=== PATIENT | female | born 1995 | race Caucasian/White ===

== ENCOUNTER 2024-05-22 10:41 | Inpatient (IN) | payer MEDICAID, SELFPAY ==
[2024-05-22] VITALS (109 sets, daily range): BP systolic 80–157; BP diastolic 42–92; PULSE 55–119; RESP 14–24; TEMP 36.3–37.3; O2SAT 83–100; BMI 38.2
--- NOTE | 2024-05-22 11:00 | ESHP_ITS ---
Documentation for date of: 05/22/24 OB Labor/Induct. HPI History of Present Illness Chief complaint: 28 y/o 37w 0d presents to L&D in labor at 4 cm : 2 Para: 1 Term pregnancies: 1 pregnancies: 0 Living children: 1 History of Abortions: Spontaneous and Elective: 0 History of Vaginal deliveries: 1 History of sections: No History of : No Date of last menstrual period: 09/05/24 DMITRY: 06/12/24 Gestational Age (weeks): 37 Gestational Age (days): 0 Gestational age based on last menstrual period: -15 History of present illness: 28 y/o 37w 0d presents to L&D in labor at 4 cm/90/-1 vertex, GBS is neg. Pt's has been complicated by BMI of 39, pt has a hx of PTD at 32 weeks, this pt was on vaginal progesterone, which was DC at 35 weeks. Pt EFW 3600g History of Present Dating criteria: based on LMP only Adequate Care: Yes Ultrasounds: normal 1st trimester US and normal mid trimester US Obstetrical complications: other (obesity) Labs Maternal Blood Type: O Pos Labs: Positive: Rubella Titre, Negative: RPR, Hepatitis B, HIV, Chlamydia, Gonorrhea and Group Beta Strep and Unknown: Covid-19 Review of Systems Review of Systems Systems Reviewed: All systems reviewed, normal except as documented Past Medical History Surgical History SURGICAL: Negative Section Meds Home Medications and Allergies Home Medications ?Medication ?Instructions ?Recorded ?Confirmed ?Type prenat.vits,genesis,mso-uepm-csums 1 tab PO QDAY 07/06/21 05/22/24 History Allergies Allergy/AdvReac Type Severity Reaction Status Date / Time No Known Allergies Allergy Verified 05/22/24 11:02 OB Exam Physical Exam Vital signs: Temp Pulse Resp BP Pulse Ox 97.4 F 69 20 111/59 L 100 05/22/24 10:24 05/22/24 13:29 05/22/24 10:24 05/22/24 13:29 05/22/24 13:30 Constitutional Constitutional: no acute distress Routine HEENT Exam Head: Present normocephalic and atraumatic Eye: Present EOMI, PERRL and normal accommodation ENT: Present mucous membranes moist Routine Neck Exam Neck: Present supple, full ROM and trachea midline Routine Respiratory Exam Respiratory: Absent respiratory distress Routine Cardiovascular Exam Cardiovascular: Present RRR Routine Abdominal Exam Abdominal: Present soft Comments: Gravid Uterus EFW 3600g Routine Exam Patient deferred: external exam External: Present normal urethra appearance; Absent lesions Detailed Labor and Delivery Exam Dilation (cm): 4 Effacement (%): 90 Cervix position: posterior station: -1 Consistency: soft Presentation: Vertex Membranes: intact Baseline heart rate: 130 monitor accelerations: 15x15 monitor decelerations: None watermelon harvesting supervisor variability: Moderate (11-25) Contraction frequency (min): 2-3 Contraction intensity: Moderate Routine Extremities Exam Extremities: Present full ROM Routine Back/Spine/Pelvis Exam Back/Spine: Present full ROM Routine Skin Exam Skin: Present intact, dry and warm Routine Neurological Exam Neurological: Present alert, oriented X3 and CN II-XII intact Routine Psychiatric Exam Psychiatric: Present normal affect and normal thought process OB Results Labs 05/22/24 11:11 Labs: Short CBC 05/22/24 Range/Units 11:11 WBC 11.3 H (3.6-11.0) Thou/mm3 Hgb 13.2 (12.0-16.0) g/dL Hct 36.2 (36.0-46.0) % Plt Count 249 (140-440) Thou/mm3 OB Assessment & Plan Assessment and Plan (1) Normal labor: Status: Acute (2) Obesity affecting in third trimester: Status: Acute (3) 37 weeks gestation of : Status: Acute Additional Plan Induction method: none Plan: augmentation and consult MD grant Additional Plan Comment: Routine admit orders Consult anesthesia for an epidural Anticipate (2) Obesity affecting in third trimester Qualifiers: Obesity type affecting : other obesity due to excess calories Q ualified Code(s): O99.213 - Obesity complicating , third trimester; E66.09 - Other obesity due to excess calories
[2024-05-22] MEDS: RINGERS LACTATED 1000 ML 1,000 ML 125 ML IV ×2 (11:11→11:52)
[2024-05-22 11:25] LABS: Basophils % (Auto) 0 % (0-2.5); Eosinophils # (Auto) 0.1 Thou/mm3 (0.0-0.5); Eosinophils % (Auto) 0 % (0-10); Hematocrit 36.2 % (36.0-46.0); Hemoglobin 13.2 g/dL (12.0-16.0); Immature Granulocytes % (Auto) 0 % (0-0); Immature Granulocytes Auto 0.04 Thou/mm3 (0.00-0.00); Lymphocytes # (Auto) 2.6 Thou/mm3 (1.0-4.8); Lymphocytes % (Auto) 23 % (10-50); Mean Corpuscular HGB Conc 36.5 g/dl (31.0-37.0); Mean Corpuscular Hemoglobin 31.2 pg (25.0-35.0); Mean Corpuscular Volume 86 fL (80-100); Monocytes # (Auto) 0.6 Thou/mm3 (0.0-0.8); Monocytes % (Auto) 5 % (0-12); Neutrophils % (Auto) 70 % (37-80); Nucleated Red Blood Cell % 0 /100 WBC (0); Platelet Count 249 Thou/mm3 (140-440); RDW Standard Deviation 40.5 fL (36.4-46.3); Red Blood Count 4.23 Miln/mm3 (4.00-5.20); White Blood Count 11.3 Thou/mm3 (3.6-11.0)
[2024-05-22 12:06] LABS: Syphilis Nonreactive (Nonreactive)
--- NOTE | 2024-05-22 13:26 | PD.LDPN ---
Documentation for date of: 05/22/24 OB Labor Progress Note Pain Control Pain control: epidural Pelvic Exam Dilation (cm): 5 Effacement (%): 90 station: 0 Amniotic membrane status: Ruptured (AROM, bloody clear) Contractions Monitor mode: External Contraction frequency: 3-4 Contraction phase: Contraction Contraction intensity: Moderate Status status: Category ll Assessment and Plan Assessment: other (Latent labor) Plan OB labor note: continuous present management Comments: AROM performed- bloody clear fluids Pt received an epidural and is comfortable, right after breaking membranes, pt started to feel weird and was dizzy, HOB was lowered, BP dropped to 80/45, fluid bolus started, pt was turned to her left side and O2 placed, FHT also dropped. After intrauterine resuscitation measures, mother and baby are now stable, BP has come up and heart tones. IUPC placed to monitor contractions, amniinfusion started Anticipate
[2024-05-22] MEDS: CITRIC ACID/SODIUM CITR 15 ML UDC (BICITRA) 30 ML PO (15:50)
[2024-05-22] MEDS: FAMOTIDINE INJ 10 MG/ML VIAL 2 ML 20 MG IV (15:51)
[2024-05-22] MEDS: ceFAZolin/D5W 2 GM IV 2 GM/100 ML BAG IV (15:51)
[2024-05-22] MEDS: AZITHROMYCIN 250 MG TABLET 1000 MG PO (16:02)
--- NOTE | 2024-05-22 16:15 | PD.LDPN ---
Documentation for date of: 05/22/24 OB Labor Progress Note Pelvic Exam Dilation (cm): 6 Effacement (%): 90 station: -1 Amniotic membrane status: Ruptured (AROM, bloody clear) Contractions Monitor mode: External Contraction frequency: 2-3 Contraction phase: Contraction Contraction intensity: Moderate Status status: Category ll Comments: late decels recurrent , inspite of position change , bolus, BP was alsoaddressed , even jorge BP was normal , the decels did reccur. Assessment and Plan Comments: Patoient was given both options of expectant vs Csection Risk of Csection expalined chose to go for Csection
--- NOTE | 2024-05-22 21:06 | PD.LDDELS ---
Data ([facility]) Data Hx Section: No : 2 Para: 1 Term: 0 : 1 : 0 Delivery Data ([facility]) Labor Data ROM Date: 05/22/24 ROM Time: 13:14 Rupture Type: AROM Amniotic Fluid: Clear Delivery Data Labor Onset Stage 1 Date: 05/22/24 Labor Onset Stage 1 Time: 12:09 Labor Onset Stage 2 Date: 05/22/24 Labor Onset Stage 2 Time: 16:29 Delivery Date: 05/22/24 Delivery Time: 16:29 Gestational age (weeks): 37 Placenta Delivery Date: 05/22/24 Placenta Delivery Time: 16:30 Delivered by: Melodie Darling Delivery nurse: Beatrice New Other staff at delivery: Nurse Other staff at delivery: RT Other staff at delivery: Vanessa Lombardo Other staff at delivery: davey Delivery Method Delivery: Delivery Type: Primary Anesthesia Type Primary Anesthesia: Epidural Placenta Placenta Delivery: Manual Cord Sample: Cord Blood Obtained, Cord Gases Arterial and Cord Gases Venous EBL Estimated blood loss (ml): 300 Umbilical Cord Nuchal Cord: x1 Body Cord: x1 Hortense Data ([facility]) Hortense Data Infant Gender: Male Weight Grams: 3280 1 Minute Total: 7 5 Minute Total: 9
--- NOTE | 2024-05-22 21:10 | PD.GYNPROC ---
Operative Note - CORRESPONDENCE RENEW CLERK Procedure Date of procedure: 05/22/24 Procedure Performed: Primary Low trransverse Csectiomn Indication: cat 2 FHT , recurrent late decel , non resoluting after resuscitative measure Pre-Op diagnosis: samesame Post-Op diagnosis: same Anesthesia type: Spinal Procedure description: Informed consent was obtained and the patient was taken to the operating room.? Identity was confirmed by double identifiers and she was placed on the operating table.The abdomen and perineum were prepped in the usual sterile fashion and a Kumar catheter was placed to continuous drainage.? Sterile drapes were applied.??A Pfannenstiel skin incision was made with a scalpel and carried to the subcutaneous fat up to the rectus fascia.? The rectus fascia was incised on either side of the midline and the incisions were extended bilaterally.? The fascia was gently dissected off the ventral surface of the rectus muscle both superiorly and inferiorly. Carefully a peritioneal window craeted hysterotomy incision made and extended bluntly with finger. Rupture of membranes revealed clear fluid. The baby was found in cephalic position delivered via vertex. The umbilical cord , was doubly clamped, divided and the infant was handed over to the waiting team.? placenta delivered by controlled cord traction . The interior of the uterus was now thorougly cleaned of all blood and debris and membranes.? 2 cavities and the uterus verified the? hysterotomy was closed using 0 vicryl suture in double layers. Once the repair was completed the hysterotomy was inspected, was noted to be adequately hemostatic . Muscle oozing stopped by bovie. The rectus fascia was repaired using Vicry 0 in a running fashion.? The subcutaneous layer was now, approximated with 3-0 vicryl in double layers.? All bleeding points were cauterized using the Bovie.?The skin was closed using 4-0 Monocryl in a subcuticular fashion.? The skin was cleaned and a sterile dressing was applied. The patient was now undraped, the abdomen and back were thoroughly cleaned and she was now transferred to the recovery room in a stable Estimated blood loss (ml): 300 Surgical staff Operation Date: 05/22/24 16:15 Case Staff IN TUBE CONVERSION TECHNICIAN: Anuj Louie RNfuel efficient automobile designer: Janel Gilliam Diagnosis Problem List Completed Was Problem List Reviewed/Reconciled?: Yes
[2024-05-22 22:28] LABS: Basophils % (Auto) 0 % (0-2.5); Eosinophils % (Auto) 0 % (0-10); Hematocrit 30.7 % (36.0-46.0); Hemoglobin 10.9 g/dL (12.0-16.0); Immature Granulocytes % (Auto) 0 % (0-0); Immature Granulocytes Auto 0.05 Thou/mm3 (0.00-0.00); Lymphocytes # (Auto) 1.8 Thou/mm3 (1.0-4.8); Lymphocytes % (Auto) 12 % (10-50); Mean Corpuscular HGB Conc 35.5 g/dl (31.0-37.0); Mean Corpuscular Hemoglobin 31.3 pg (25.0-35.0); Mean Corpuscular Volume 88 fL (80-100); Monocytes % (Auto) 7 % (0-12); Neutrophils # (Auto) 12.3 Thou/mm3 (1.8-7.7); Neutrophils % (Auto) 81 % (37-80); Nucleated Red Blood Cell % 0 /100 WBC (0); Platelet Count 201 Thou/mm3 (140-440); RDW Standard Deviation 42.3 fL (36.4-46.3); Red Blood Count 3.48 Miln/mm3 (4.00-5.20); White Blood Count 15.1 Thou/mm3 (3.6-11.0)
[2024-05-22] MEDS: OXYTOCIN in NS 20 units 20 UNIT/1,000 ML BAG 125 UNIT IV (23:04)
[2024-05-22] MEDS: KETOROLAC INJ 30 MG/ML VIAL IVP (23:06)
[2024-05-23 04:26] VITALS: BP 107/71; PULSE 75; RESP 18; TEMP 36.6; O2SAT 97
[2024-05-23] MEDS: HYDROcodone/APAP 5/325 TABLET 2 TAB PO ×2 (04:31→19:55)
[2024-05-23 08:00] VITALS: BP 109/51; PULSE 81; RESP 16; TEMP 36.7; O2SAT 98
--- NOTE | 2024-05-23 08:15 | PC.LAC ---
Mom states she hasn't seen her milk though hand expression. Explained skin to skin and help with stimulation could encourage more hormones for more milk. At this time baby in blankets. Unwrapped baby and placed him skin to skin. Mom ok with this.
--- NOTE | 2024-05-23 09:17 | ESPR_ITS ---
Subjective Subjective Interval history: Bobbi is doing well on POD 1. Pain could be better managed- she is receiving both norco and ibuprofen prn rather than having ibuprofen scheduled. She notes pain has been creeping up this morning after receiving a norco at 0400 and walking at that time. She is currently awaiting due to void after arenas was removed at 0400. She notes no lightheadedness when she walked. Tolerating PO without nausea/vomiting. No fevers/chills. No CP/SOB. Exam Vital Signs Temp Pulse Resp BP Pulse Ox O2 Del Method 97.9 F 75 18 107/71 97 Room Air 05/23/24 04:26 05/23/24 04:26 05/23/24 04:26 05/23/24 04:26 05/23/24 04:26 05/23/24 04:26 Narrative Exam General: well developed, well nourished, no acute distress, conversant Cardiac: normal heart rate Lungs: breathing without distress Abdomen: soft, post-gravid, non-tender, no rebound or guarding, pfannenstiel incision covered by dry/clean/intact pressure dressing. No saturation. Extremities: no pain with palpation of calves, trace edema of BLE Objective Labs 05/22/24 22:13 Labs: Laboratory Results - last 24 hr 05/22/24 05/22/24 11:11 22:13 WBC 11.3 H 15.1 H RBC 4.23 3.48 L Hgb 13.2 10.9 L D Hct 36.2 30.7 L MCV 86 88 MCH 31.2 31.3 MCHC 36.5 35.5 RDW Std Deviation 40.5 42.3 Plt Count 249 201 D Neut % (Auto) 70 81 H Lymph % (Auto) 23 12 Villalba % (Auto) 5 7 Eos % (Auto) 0 0 Baso % (Auto) 0 0 Neut # (Auto) 8.0 H 12.3 H Lymph # (Auto) 2.6 1.8 Villalba # (Auto) 0.6 1.0 H Eos # (Auto) 0.1 0.0 Baso # (Auto) 0.0 0.0 Immature Gran # (Auto) 0.04 H 0.05 H Absolute Nucleated RBC 0.00 0.00 Immature Gran % 0 0 Nucleated RBC % 0 0 Syphilis Serology Nonreactive Blood Type O Positive Antibody Screen NEGATIVE Blood Bank Wristband ID Yes Assessment & Plan Problem List (1) Delivery by section: Status: Acute Assessment and plan: Patient is a 28yo G2 [id number] s/p uncomplicated PLTCS after experiencing a persistent Cat II FHRT in labor, doing well on POD 1. Vitals wnl, benign exam. Hemodynamically stable with no evidence of infection. Appropriate change in H/H. Plan: -Continue routine /post-op care -Switch prn ibuprofen to scheduled, continue norco prn and add miralax for bowel regimen -Awaiting due to void -Regular diet -Encourage ambulation and use of IS -Anticipate discharge home tomorrow if meeting all milestones (2) Non-reassuring heart rate or rhythm affecting management of fetus: Status: Acute (3) Obesity affecting in third trimester: Status: Acute (4) 37 weeks gestation of : Status: Acute Time Spent With Patient Time: Total time spent is greater than 50% in coordination of care (as documented) at patient's floor/unit and/or counseling patient: Time with patient: 25 - 35 minutes
[2024-05-23] MEDS: IBUPROFEN TAB 400 MG TABLET 800 MG PO ×2 (10:19→18:08)
[2024-05-23] MEDS: POLYETHYLENE GLYCOL 17 GM PACKET PO (11:34)
[2024-05-23 11:52] VITALS: BP 111/61; PULSE 84; RESP 18; TEMP 36.8; O2SAT 99
[2024-05-23 16:00] VITALS: BP 113/76; PULSE 89; RESP 17; TEMP 36.8; O2SAT 98
[2024-05-23 19:49] VITALS: BP 110/74; PULSE 85; RESP 19; TEMP 36.9; O2SAT 96
--- NOTE | 2024-05-23 22:49 | PC.NURSE ---
2130 patient refused bath and stated that she wants to do the bath at home.
--- NOTE | 2024-05-23 22:52 | PC.NURSE ---
1948 Patient refused fundal assessment at this time pt educated on importance of fundal check.
[2024-05-24] MEDS: IBUPROFEN TAB 400 MG TABLET 800 MG PO ×2 (01:03→09:50)
[2024-05-24 03:43] VITALS: BP 105/62; PULSE 90; RESP 18; TEMP 36.6; O2SAT 97
--- NOTE | 2024-05-24 05:53 | PC.NURSE ---
0343 Patient refused fundal assessment at this time. Patient educated on the importance of fundal check. Patient verbalized understanding.
[2024-05-24 08:10] VITALS: BP 106/70; PULSE 79; RESP 17; TEMP 36.7; O2SAT 97
--- NOTE | 2024-05-24 08:47 | ESDS_ITS ---
DS: Providers Provider Date of admission: 05/22/24 10:41 Primary care physician: Physician No Primary/Family Admitting Provider: Bhumi Gauthier CNM Attending Provider on Admission: Melodie Darling MD Consults: 05/22/24 16:15 Referral Routine Comment: Attending Provider on DC: Josey Lerma MD Discharging Provider: Josey Lerma MD DS: Diagnosis Discharge Diagnosis (1) Delivery by section: Status: Acute Assessment & Plan: Patient is a 28yo G2 [id number] s/p uncomplicated PLTCS after experiencing a persistent Cat II FHRT in labor, doing well on POD 2. She has had an uneventful post-operative/ course. Vitals wnl, benign exam. Hemodynamically stable with no evidence of infection. Appropriate change in H/H (10.9 from 13.2). Plan: -Discharge home -Regular diet -Medications prescribed to pharmacy: motrin 800mg PO Q8hr prn pain, norco 5/325mg PO Q6hr prn pain, miralax 17g PO QD to prevent constipation, ferrous sulfate 325mg PO QD for anemia. Discussed with patient how to take medications. -Restrictions: vaginal rest and no heavy lifting greater than 10 pounds for 6 weeks, no driving while taking narcotic, do not submerge incision (keep clean and dry) -Follow up: 1 week appointment with OBGYN for incision check -Return precautions given: fever greater than 100.4F, chills, myalgias, increasing abdominal pain, drainage/redness/swelling of incision, foul smelling vaginal discharge, heavy vaginal bleeding > 1 pad in an hour for 2 hours in a row, redness/pain of breast in the setting of fevers/chills/myalgias, symptoms of depression (2) Non-reassuring heart rate or rhythm affecting management of fetus: Status: Acute (3) Obesity affecting in third trimester: Status: Acute Problem List Completed Was Problem List Reviewed/Reconciled?: Yes Summary/Hosp Course Brief History: S/p uncomplicated PLTCS after experiencing a persistent Cat II FHRT in labor. She has had an uneventful post-operative course. Vitals wnl, benign exam. Hemodynamically stable with no evidence of infection. Appropriate change in H/H. Pain well controlled. She feels ready to go home. Peripartum Data Procedures: Procedures Operation Date: 05/22/24 16:15 Actual Procedure Side Surgeon p in OB Not Applicable Melodie Darling MD Status at Discharge Functional status at discharge: independent ambulation Overall status at discharge: patient is back to baseline Time Spent with Patient Time attestation: Total time spent providing and/or coordinating discharge services: Exam Vital Signs Temp Pulse Resp BP Pulse Ox O2 Del Method 98.0 F 79 17 106/70 97 Room Air 05/24/24 08:10 05/24/24 08:10 05/24/24 08:10 05/24/24 08:10 05/24/24 08:10 05/24/24 08:10 Narrative Exam General: well developed, well nourished, no acute distress, conversant Cardiac: normal heart rate Lungs: breathing without distress Abdomen: soft, post-gravid, non-tender, no rebound or guarding, pfannenstiel incision covered by dry/clean/intact prineo bandage. Incision well reapproximated. No erythema, drainage or induration. Paper tape dressing removed. Extremities: no pain with palpation of calves, trace edema of BLE Discharge Plan Plan Patient Disposition: HOME (Self Care) Patient condition on transfer: Stable Prescriptions/Referrals Prescriptions/Med Rec: New polyethylene glycol 3350 [HealthyLax] 17 gram Powder In Packet 17 g PO QDAY 14 Days Qty: 14 0RF hydrocodone-acetaminophen 5-325 mg Tablet 1 tab PO Q6HR MDD 4 tablets PRN (Reason: Patient rated pain 9 to 10) 10 Days Qty: 20 0RF ibuprofen 400 mg Tablet 800 mg PO Q8H PRN (Reason: Abdominal Pain) 10 Days Qty: 30 0RF ferrous sulfate 325 mg (65 mg iron) tablet 325 mg PO QDAY Qty: 60 0RF Continued prenat.vits,genesis,wxh-tapm-egdag Tablet 1 tab PO QDAY Referrals: No Primary/Family,Physician [Primary Care Provider] - Patient/Caregiver Discharge Instructions Discharge Activity: activity as tolerated and other Other Discharge Activity Instructions:: Vaginal rest and no heavy lifting greater than 10 pounds for 6 weeks[address] No [address] while taking narcotic. Schedule an appointment with your ob provider in one week for incision check and bandage removal. Other Discharge Diet Instructions: regular Education Materials: Breast Care After , After a , Nutrition While , C Section Dc Print Language: Divehi Stand Alone Forms: Hina Award Info., Patient Portal Info Letter Discharge Order Discharge Orders: Discharge (Routine); Ordered 05/24/24 Ordered By: Josey Lerma Planned Discharge Date 05/24/24 (3) Obesity affecting in third trimester Qualifiers: Obesity type affecting : other obesity due to excess calories Qualified Code(s): O99.213 - Obesity complicating , third trimester; E66.09 - Other obesity due to excess calories
[2024-05-24] MEDS: POLYETHYLENE GLYCOL 17 GM PACKET PO (08:52)
== END 2024-05-24 12:07 | disposition home or self-care (01) | DRG 540 ==
LOC: S4SX 16:52 → S4NX 17:17
PROVIDERS: Admitting Provider Nurse Practitioner Women's Health; Visit Provider Student in an Organized Health Care Education/Training Program
PROC: 10D00Z1 Extraction of Products of Conception, Low, Open Approach (ICD-10-PCS; CPT 59514; principal; 2024-05-22 16:00)
DX: O99.214 Obesity complicating childbirth (principal); Z37.0 Single live birth; Z3A.37 37 weeks gestation of pregnancy; E66.09 Other obesity due to excess calories; O69.81X0 Labor and delivery complicated by cord around neck, without compression, not applicable or unspecified; O69.82X0 Labor and delivery complicated by other cord entanglement, without compression, not applicable or unspecified; O76 Abnormality in fetal heart rate and rhythm complicating labor and delivery
CPT/HCPCS: 36415; 59409; 85025; 86780; 86850; 86900; 86901; 94762; J0689; J1885; J2371; J2590; J2795; J3010; J3490; J7120; A9270